=== PATIENT | female | born 1950 | race Caucasian/White ===

== ENCOUNTER 2018-01-02 14:31 | Emergency (ER) | payer MEDICARE ==
[2018-01-02 15:28] VITALS: BP 144/85
--- NOTE | 2018-01-02 15:44 | UC ---
Ear Complaint HPI - HPI Summary HPI Summary: 67 y/o male presents to the urgent care c/o RT ear pressure, clogged and decrease hearing for the past week. Pt reports she saw her PCP 1 week ago and he told her RT ear was impacted w/ cerumen,. However he forgot to do ear irrigation. Pt request ear irrigation. Pt denies dizziness, pain, fever, tinnitus, URI, SOB, chest pain, abdominal pain, N/V/D. - History of Current Complaint Chief Complaint: UCEar Stated Complaint: EAR PAIN Time Seen by Provider: 01/02/18 15:43 Hx Obtained From: Patient Onset/Duration: Gradual Onset, Lasting Weeks - 1 week, Still Present, Worse Since - yesterday Severity Initially: Mild Severity Currently: Mild Pain Intensity: 0 Pain Scale Used: 0-10 Numeric Aggravating Factors: Nothing Alleviating Factors: OTC Meds Associated Signs/Symptoms: Positive: Hearing Loss - Allergies/Home Medications Allergies/Adverse Reactions: Allergies Allergy/AdvReac Type Severity Reaction Status Date / Time No Known Allergies Allergy Verified 01/02/18 15:28 Home Medications: Home Medications Meloxicam 7.5 mg PO 01/02/18 [History] Nadolol [Corgard] 20 mg PO 01/02/18 [History] PMH/Surg Hx/FS Hx/Imm Hx Previously Healthy: Yes Cardiovascular History: Hypertension - Surgical History Surgical History: Yes Surgery Procedure, Year, and Place: hysterectomy, rtc tear, bunion, wrist, gallbladder - Family History Known Family History: Positive: Cardiac Disease, Hypertension - Social History Occupation: Retired Lives: With Family Alcohol Use: None Substance Use Type: None Smoking Status (MU): Never Smoked Tobacco Review of Systems Constitutional: Negative Skin: Negative Eyes: Negative ENT: Ear Ache - RT ear pressure, clogged and decrease hearing Respiratory: Negative Cardiovascular: Negative Gastrointestinal: Negative Genitourinary: Negative Motor: Negative Neurovascular: Negative Musculoskeletal: Negative Neurological: Negative Psychological: Negative Is Patient Immunocompromised?: No All Other Systems Reviewed And Are Negative: Yes Physical Exam - Summary Physical Exam Summary: Vital signs: reviewed General: well developed, well nourished obese female sitting in the examining table w/o any apparent distress Skin: [place], warm and dry, no evidence of atopic dermatitis, psoriasis, seborrhea. HEENT: -Head: atraumatic, non tender; no scalp dermatitis. -Eyes: sclera and conjunctiva clear, PERRLA, EOMI -Ears: no pre- or postauricular lymphadenopathy or erythema; RT external ear canal impacted w/ cerumen unable to visualize RT TM. LF external ear canal clear and LF TM WNL. TMs normal w/out bulging or retraction. Good light reflex. No fluid level, vesicles, or bullae. No perforation. -Nose/Face: erythematous and edematous nasal mucosa with clear rhinorrhea, no frontal or maxillary sinus tender to palpation. -Mouth/Throat: Mucous membrane moist, posterior pharynx clear, no erythema or exudates. Neck: supple, FROM, nontender, no lymphadenopathy, no meningismus. Chest: Clear to auscultation, normal breath sounds Abd: soft, Bowel sounds active, Nontender. Back: no spinal or CVAT Neuro: A&O x4, GCS 15, no focal neuro deficits, normal behavior for age. Triage Information Reviewed: Yes Vital Signs: Initial Vital Signs Temp 97.9 F 01/02/18 15:24 Pulse 74 01/02/18 15:24 Resp 18 01/02/18 15:24 BP 144/85 01/02/18 15:24 Pulse Ox 99 01/02/18 15:24 Ear Complaint Course/Dx - Course Course Of Treatment: 67 y/o male presents to the urgent care c/o RT ear pressure , clogged and decrease hearing for the past week. Pt reports she saw her PCP 1 week ago and he told her RT ear was impacted w/ cerumen,. However he forgot to do ear irrigation. Pt request ear irrigation. Pt denies dizziness, pain, fever , tinnitus, URI, SOB, chest pain, abdominal pain, N/V/D. Hx obtained. Pt w/ RT external ear canal impacted w/ cerumen on examination. RT ear irrigation ordered. Irrigation performed by Nurse. Pt tolerated well procedure w/o any adverse effect. Left external clear, RT TM injected w/ erythema w/ mild yellowish disccharge, no light reflex, no perforation. Pt will be Tx for otitis Media. Pt Rx Amoxicillin PO . Advised to take Tylenol PO for alleviate otalgia. Pt advised if not improvement of symptoms in 2-3 days to return to the clinic or f/u w/ her PCP for further treatment. Pt's BP is elevated today advised to decrease salt in diet, monitor BP and f/u with PCP for further management. Pt understood and agreed w/ plan of care. - Differential Dx/Diagnosis Differential Diagnosis/HQI/PQRI: Cerumen Impaction, Otitis Externa, Otitis Media , Perforated TM, URI Provider Diagnoses: 1- RT ear cerumen impaction. 2- Rt otitis Media. 2- Uncontrolled HTN Discharge - Sign-Out/Discharge Documenting (check all that apply): Patient Departure - D/c home All imaging exams completed and their final reports reviewed: No Studies - Discharge Plan Condition: Stable Disposition: HOME Prescriptions: Amoxicillin PO (*) [Amoxicillin 875 MG (*)] 875 mg PO BID #20 tab Patient Education Materials: Cerumen Impaction (ED), Low-Sodium Diet (ED) Referrals: Asael Krishnan MD [Primary Care Provider] - 3 Days Additional Instructions: 1- Please take the full course of the antibiotic to avoid resistance. 2-Please take Tylenol PO q6-8hrs prn as if you develop ear pain. 3-If symptoms do not improve or worsen please return to the urgent care or f/u with your PCP 3 days for further evaluation and treatment. 4-Your BP is elevated today. please decrease salt in your diet, monitor BP and if it continues to be elevated please f/u with your PCP for further management - Billing Disposition and Condition Condition: STABLE Disposition: Home
== END 2018-01-02 16:25 | disposition home or self-care (01) ==
LOC: UCEAST 14:31
DX: H61.21 Impacted cerumen, right ear (principal); H66.91 Otitis media, unspecified, right ear; I10 Essential (primary) hypertension
CPT/HCPCS: 99213; G0463

== ENCOUNTER 2018-07-22 14:08 | Emergency (ER) | payer MEDICARE ==
[2018-07-22 14:15] VITALS: BP 180/79
--- NOTE | 2018-07-22 14:18 | UC ---
Hand/Wrist HPI - HPI Summary HPI Summary: 68 yo female presents with right hand pain. She tells me that last night she was on the phone with her daughter for awhile and when she hung up she noticed pain on the palmar aspect of her right hand. Unable to fully flex fingers due to pain in palm and volar wrist. She is right handed. No specific injury, numbness, or tingling. She does have a hx of b/l carpal tunnel surgery many years ago without complications. She has taken ibuprofen with no change in her symptoms. - History Of Current Complaint Chief Complaint: UCUpperExtremity Stated Complaint: HAND PAIN Time Seen by Provider: 07/22/18 14:18 Hx Obtained From: Patient Onset/Duration: Sudden Onset Severity Initially: Moderate Severity Currently: Moderate Pain Intensity: 6 Pain Scale Used: 0-10 Numeric - Allergies/Home Medications Allergies/Adverse Reactions: Allergies Allergy/AdvReac Type Severity Reaction Status Date / Time No Known Allergies Allergy Verified 07/22/18 14:15 PMH/Surg Hx/FS Hx/Imm Hx Cardiovascular History: Hypertension - Surgical History Surgical History: Yes Surgery Procedure, Year, and Place: hysterectomy,. Rt SHOULDER - rtc tear,. bunion,. wrist -JAE CARPAL TUNNEL. gallbladder - Family History Known Family History: Positive: Cardiac Disease, Hypertension - Social History Occupation: Employed Full-time Lives: With Family Alcohol Use: None Substance Use Type: None Smoking Status (MU): Never Smoked Tobacco Review of Systems All Other Systems Reviewed And Are Negative: Yes Constitutional: Positive: Negative Skin: Positive: Negative Respiratory: Positive: Negative Cardiovascular: Positive: Negative Neurovascular: Positive: Negative Musculoskeletal: Positive: Other: - Right hand pain Neurological: Positive: Negative Psychological: Positive: Negative Physical Exam - Summary Physical Exam Summary: GENERAL: NAD. WDWN. No pain distress. SKIN: No rashes, sores, lesions, or open wounds. CHEST: No accessory muscle use. Breathing comfortably and in no distress. CV: Pulses intact radial and ulnar. Cap refill <2seconds MSK: RIGHT HAND: NTTP. Decreased flexion of fingers due to pain in palm. Full extension. RIGHT WRIST: Mild TTP at flexor tendons at volar wrist. FROM without pain at wrist. No edema or obvious bony deformities. No snuffbox tenderness. NEURO: Alert. Sensations intact hand and all fingers. PSYCH: Age appropriate behavior. Triage Information Reviewed: Yes Vital Signs: Initial Vital Signs Temp 98.8 F 07/22/18 14:13 Pulse 72 07/22/18 14:13 Resp 17 07/22/18 14:13 BP 180/79 07/22/18 14:13 Pulse Ox 100 07/22/18 14:13 Vital Signs Reviewed: Yes Hand/Wrist Course/Dx - Course Course Of Treatment: XR hand: IMPRESSION: SOFT TISSUE SWELLING, NO FRACTURE IS SEEN. Suspect tendinitis of flexor tendon(s). Advised to RICE, use cock-up splint, and continue ibuprofen for discomfort. I suspect her symptoms will improve within a few days, but if they do not - advised to f/u with Ortho for a recheck. - Differential Dx/Diagnosis Provider Diagnosis: Tendinitis Discharge - Sign-Out/Discharge Documenting (check all that apply): Patient Departure All imaging exams completed and their final reports reviewed: Yes - Discharge Plan Condition: Stable Disposition: HOME Patient Education Materials: Tendinitis (ED) Referrals: Asael Krishnan MD [Primary Care Provider] - Rainer Cameron MD [Medical Doctor] - If Needed Additional Instructions: If you develop a fever, shortness of breath, chest pain, new or worsening symptoms - please call your PCP or go to the ED immediately. Your blood pressure was high at todays visit. Please see your primary provider within 4 weeks for recheck and re-evaluation. 1) Your X-Ray was normal today 2) I suspect your hand pain is due to some tendinitis in your flexor tendons --- This should improve within 3-5 days with rest, ice, splint, and ibuprofen as directed. 3) If your symptoms do not improve within 5-7 days, please call Orthopedics at the number below to schedule an appointment for a recheck. - Billing Disposition and Condition Condition: STABLE Disposition: Home
== END 2018-07-22 15:00 | disposition home or self-care (01) ==
LOC: UCEAST 14:08
DX: M77.9 Enthesopathy, unspecified (principal); I10 Essential (primary) hypertension; Z82.49 Family history of ischemic heart disease and other diseases of the circulatory system
CPT/HCPCS: 99212; G0463